=== PATIENT | male | born 1970 | race Caucasian/White ===

== ENCOUNTER 2018-10-21 08:50 | Emergency (ER) | payer OTHER ==
[2018-10-21 09:02] VITALS: BP 104/71; PULSE 66; TEMP 98; BMI 27.3
[2018-10-21] MEDS ORDERED: DIPHTH,PERTUSS(ACELL),TET 0.5 ML DISP.SYRIN IM ONE ×2 (09:16→09:18)
[2018-10-21] MEDS ORDERED: ACETAMINOPHEN 500 MG TABLET (FP) PO ONE (10:00)
[2018-10-21] MEDS ORDERED: ACETAMINOPHEN 500 MG TABLET (FP) ONE (10:01)
--- NOTE | 2018-10-21 10:03 | PDOC ---
History of Present Illness - General Chief Complaint: Injury Stated Complaint: HEAD INJURY Time Seen by Provider: 10/21/18 09:15 History Source: Patient Exam Limitations: No Limitations - History of Present Illness Initial Comments: 10/21/18 10:01 Patient's supervising a construction job, and left forehead struck identically piece of metal incurring laceration the upper left aspect of forehead. No active bleeding, no other injury. Occurred: reports: just prior to arrival, this morning Severity: reports: mild Pain Location: reports: face Method of Injury: Yes: direct blow Loss of Consciousness: no loss of consciousness Associated Symptoms (Fall): denies symptoms Past History - Travel Traveled outside of the country in the last 30 days: No Close contact w/someone who was outside of country & ill: No - Past Medical History Allergies/Adverse Reactions: Allergies Allergy/AdvReac Type Severity Reaction Status Date / Time No Known Allergies Allergy Verified 10/21/18 08:58 Home Medications: Ambulatory Orders NK [No Known Home Medication] 10/21/18 COPD: No GI Disorders: Yes (acid reflux, INTESTINAL BLOCKAGE) - Surgical History Abdominal Surgery: Yes (for SBO) - Immunization History Immunization Up to Date: No - Suicide/Smoking/Psychosocial Hx Smoking Status: No Smoking History: Never smoked Number of Cigarettes Smoked Daily: 0 Hx Alcohol Use: No Drug/Substance Use Hx: No Substance Use Type: None Hx Substance Use Treatment: No Review of Systems - Review of Systems Able to Perform ROS?: Yes Is the patient limited Swedish proficient: Yes Constitutional: Yes: Symptoms Reported, See HPI HEENTM: Yes: Symptoms Reported, See HPI Respiratory: Yes: See HPI. No: Symptoms reported Integumentary: Yes: Symptoms Reported, See HPI, Other (2 cm laceration to left upper forehead) Neurological: Yes: Symptoms reported All Other Systems: Reviewed and Negative *Physical Exam - Vital Signs Last Vital Signs Temp Pulse Resp BP Pulse Ox 98.0 F 66 18 104/71 98 10/21/18 08:58 10/21/18 08:58 10/21/18 08:58 10/21/18 08:58 10/21/18 08:58 - Physical Exam General Appearance: Yes: Nourished, Appropriately Dressed, Apparent Distress, Mild Distress HEENT: positive: TIA, Normal ENT Inspection, TMs Normal, Pharynx Normal, Other (2 cm horizontal laceration to the upper left midpoint forehead. No crepitus or step-offs, no foreign body, no active bleeding.) Neck: positive: Supple. negative: Tender Respiratory/Chest: positive: Lungs Clear Extremity: positive: Normal Capillary Refill Integumentary: positive: Normal Color, Dry, Warm Neurologic: positive: brands editor II-XII NML intact, Fully Oriented, Alert, Normal Mood/ Affect, Normal Response, Motor Strength 5/5 Moderate Sedation - Procedure Monitoring Vital Signs: Procedure Monitoring Vital Signs Temperature 98.0 F 10/21/18 08:58 Pulse Rate 66 10/21/18 08:58 Respiratory Rate 18 10/21/18 08:58 Blood Pressure 104/71 10/21/18 08:58 O2 Sat by Pulse Oximetry (%) 98 10/21/18 08:58 Procedures - Laceration/Wound Repair Left Face Wound Length: to 2.5 cm Wound Explored: clean Wound's Depth, Shape: superficial, linear Irrigated w/ Saline: Yes Betadine Prep: Yes Anesthesia: 1% Lidocaine Wound Repaired With: Sutures Suture Size/Type: 5:0 Number of Sutures: 6 Layer Closure: No ED Treatment Course - Medications Given in the ED: ED Medications Discontinued Medications Generic Name Dose Route Start Last Admin Trade Name Freq PRN Reason Stop Dose Admin Diphtheria/Tetanus/Acell Pertussis 0.5 ml 10/21/18 09:18 10/21/18 09:19 Boostrix - IM 10/21/18 09:19 0.5 ml ONCE ONE Administration Progress Note - Progress Note Progress Note: Facial laceration repaired *DC/Admit/Observation/Transfer Diagnosis at time of Disposition: Laceration of head Qualifiers: Encounter type: initial encounter Location of open wound of head: other part of head Foreign body presence: without foreign body Qualified Code(s): S01.81XA - Laceration without foreign body of other part of head, initial encounter - Discharge Dispostion Disposition: HOME Condition at time of disposition: Stable Decision to Admit order: No - Referrals Referrals: Matthew Li MD [Primary Care Provider] - - Patient Instructions Printed Discharge Instructions: DI for Laceration Repair -- Simple Additional Instructions: Keep wound clean and dry Avoid strenuous activity/exercise to create a hot or sweaty environment until sutures are removed Reapply bacitracin ointment 2 times a day until sutures are removed Return to emergency Department or private physician in 5-7 days for suture removal May use Tylenol or Motrin for pain relief A tetanus/diphtheria/pertussis booster was updated today Return immediately to emergency department for redness, swelling, pain, or signs of infection - Post Discharge Activity
== END 2018-10-21 10:03 | disposition home or self-care (01) ==
LOC: JERFT 08:50
PROC: 3E0234Z Introduction of Serum, Toxoid and Vaccine into Muscle, Percutaneous Approach (ICD-10-PCS; principal; 2018-10-21)
PROC: 0HQ1XZZ Repair Face Skin, External Approach (ICD-10-PCS; 2018-10-21)
DX: S01.81XA Laceration without foreign body of other part of head, initial encounter (principal); W22.8XXA Striking against or struck by other objects, initial encounter; Y93.H3 Activity, building and construction; Y92.61 Building [any] under construction as the place of occurrence of the external cause; Y99.0 Civilian activity done for income or pay
CPT/HCPCS: 90715; 99282-25

== ENCOUNTER 2018-10-27 12:37 | Emergency (ER) | payer OTHER ==
[2018-10-27 13:11] VITALS: BP 111/68; PULSE 65; TEMP 98.3; BMI 27.3
--- NOTE | 2018-10-27 13:32 | PDOC ---
Suture Removal/Wound Check HPI - History of Present Illness Chief Complaint: Suture/Staple Removal(Here) Stated Complaint: SUTURE/STAPLE REMOVAL Time Seen by Provider: 10/27/18 13:15 History Source: Yes: Patient Treated at: [facility] ED - Previous ED Treatment Type of procedure performed on last visit: Yes: Laceration Repair Past History - Past Medical History Allergies/Adverse Reactions: Allergies Allergy/AdvReac Type Severity Reaction Status Date / Time No Known Allergies Allergy Verified 10/27/18 13:11 Home Medications: Ambulatory Orders NK [No Known Home Medication] 10/21/18 COPD: No GI Disorders: Yes (acid reflux, INTESTINAL BLOCKAGE) - Surgical History Abdominal Surgery: Yes (for SBO) - Immunization History Immunization Up to Date: No - Suicide/Smoking/Psychosocial Hx Smoking Status: No Smoking History: Never smoked Number of Cigarettes Smoked Daily: 0 Hx Alcohol Use: No Drug/Substance Use Hx: No Substance Use Type: None Hx Substance Use Treatment: No *Review of Systems - Review of Systems Constitutional: No: Fever *Physical Exam - Vital Signs Last Vital Signs Temp Pulse Resp BP Pulse Ox 98.3 F 65 18 111/68 99 10/27/18 13:09 10/27/18 13:09 10/27/18 13:09 10/27/18 13:09 10/27/18 13:09 - Physical Exam General Appearance: Yes: Appropriately Dressed. No: Apparent Distress HEENT: positive: Normal Voice, Other (well healing lac to L forehead) Neck: positive: Supple Respiratory/Chest: negative: Respiratory Distress Integumentary: positive: Dry, Warm Neurologic: positive: Fully Oriented, Alert, Normal Mood/Affect Moderate Sedation - Procedure Monitoring Vital Signs: Procedure Monitoring Vital Signs Temperature 98.3 F 10/27/18 13:09 Pulse Rate 65 10/27/18 13:09 Respiratory Rate 18 10/27/18 13:09 Blood Pressure 111/68 10/27/18 13:09 O2 Sat by Pulse Oximetry (%) 99 10/27/18 13:09 Medical Decision Making - Medical Decision Making 10/27/18 13:30 48 yo M, here for suture removal to forehead. No pain, redness, f/c See exam 6 sutures removed form forehead No complications *DC/Admit/Observation/Transfer Diagnosis at time of Disposition: Visit for suture removal - Discharge Dispostion Disposition: HOME Condition at time of disposition: Good - Referrals Referrals: Matthew Li MD [Primary Care Provider] - - Patient Instructions Printed Discharge Instructions: DI for Suture Removal - Post Discharge Activity
== END 2018-10-27 13:43 | disposition home or self-care (01) ==
LOC: JERFT 12:37
DX: Z48.817 Encounter for surgical aftercare following surgery on the skin and subcutaneous tissue (principal); Z48.02 Encounter for removal of sutures
CPT/HCPCS: 99281-25

== ENCOUNTER 2023-06-08 04:24 | Day surgery (SDC) | payer OTHER ==
[2023-06-02 14:54] VITALS: BMI 31.6
[2023-06-08 08:33] VITALS: TEMP 98.1
[2023-06-08 08:49] VITALS: RESP 18
[2023-06-08 09:22] VITALS: BP 108/61; PULSE 69
== END 2023-06-08 09:25 | disposition home or self-care (01) ==
LOC: JASU-ENDO 04:24
PROVIDERS: ATTEND Internal Medicine Gastroenterology
PROC: 0DBL8ZX Excision of Transverse Colon, Via Natural or Artificial Opening Endoscopic, Diagnostic (ICD-10-PCS; 2023-06-08)
PROC: 0DBK8ZX Excision of Ascending Colon, Via Natural or Artificial Opening Endoscopic, Diagnostic (ICD-10-PCS; principal; 2023-06-08 08:00)
DX: Z12.11 Encounter for screening for malignant neoplasm of colon (principal); D12.2 Benign neoplasm of ascending colon; D12.3 Benign neoplasm of transverse colon; K64.8 Other hemorrhoids
CPT/HCPCS: 88305-TC

== ENCOUNTER 2024-04-11 04:25 | Day surgery (SDC) | payer OTHER ==
[2024-04-04 15:48] VITALS: BMI 31.6
[2024-04-11 09:06] VITALS: TEMP 97.5
[2024-04-11] MEDS ORDERED: FENTANYL CITRATE/PF 50 MCG/ML VIAL ONE (10:27)
[2024-04-11 12:30] VITALS: BP 114/75; PULSE 65; RESP 18
== END 2024-04-11 11:47 | disposition home or self-care (01) ==
LOC: JASU-ENDO 04:25
PROVIDERS: ATTEND Internal Medicine Gastroenterology
PROC: 0DB68ZX Excision of Stomach, Via Natural or Artificial Opening Endoscopic, Diagnostic (ICD-10-PCS; 2024-04-11)
PROC: 0DB38ZX Excision of Lower Esophagus, Via Natural or Artificial Opening Endoscopic, Diagnostic (ICD-10-PCS; principal; 2024-04-11 09:30)
DX: K21.00 Gastro-esophageal reflux disease with esophagitis, without bleeding (principal); K29.50 Unspecified chronic gastritis without bleeding; K22.70 Barrett's esophagus without dysplasia; Z98.84 Bariatric surgery status
CPT/HCPCS: 88305-TC; 88312-TC; 88342-TC

== ENCOUNTER 2024-08-08 04:26 | Day surgery (SDC) | payer OTHER ==
[2024-07-30 14:36] VITALS: BMI 34.1
[2024-08-08 10:10] VITALS: TEMP 98.2
[2024-08-08 10:34] VITALS: RESP 16
[2024-08-08 10:39] VITALS: BP 123/77; PULSE 67
== END 2024-08-08 11:03 | disposition home or self-care (01) ==
LOC: JASU-ENDO 04:26
PROVIDERS: ATTEND Internal Medicine Gastroenterology
PROC: 0DB48ZX Excision of Esophagogastric Junction, Via Natural or Artificial Opening Endoscopic, Diagnostic (ICD-10-PCS; 2024-08-08)
PROC: 0DB98ZX Excision of Duodenum, Via Natural or Artificial Opening Endoscopic, Diagnostic (ICD-10-PCS; principal; 2024-08-08 09:30)
DX: K21.00 Gastro-esophageal reflux disease with esophagitis, without bleeding (principal); K44.9 Diaphragmatic hernia without obstruction or gangrene; K31.7 Polyp of stomach and duodenum; K22.89 Other specified disease of esophagus
CPT/HCPCS: 88305-TC